=== PATIENT | female | born 1990 | race Caucasian/White ===

== ENCOUNTER 2021-09-23 16:59 | Emergency (ER) | payer OTHER ==
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
[2021-09-23 19:03] VITALS: TEMP 97.2
[2021-09-23 19:04] VITALS: BP 132/72; O2SAT 100
== END 2021-09-23 18:46 | disposition home or self-care (01) ==
LOC: ER 16:59
DX: G44.89 Other headache syndrome (principal); V49.88XA Car occupant (driver) (passenger) injured in other specified transport accidents, initial encounter; Z88.0 Allergy status to penicillin
CPT/HCPCS: 70450; 72125